=== PATIENT | male | born 1950 | race Caucasian/White ===

== ENCOUNTER 2022-08-02 13:03 | Inpatient (IN) ==
[2022-08-02 13:20] LABS: ABG ALLEN TEST POS; ABG BASE EXCESS 6.1 mmol/L (-2.0-2.0); ABG HCO3 29.6 mmol/L (22-26)
--- NOTE | 2022-08-02 13:27 | DR.SOBA ---
HPI Time Seen Time Seen by Provider: 08/02/22 13:26 Complaints Chief Complaint Doctors Comments: HYPOXIA,SOB, AFTER GETTING UP AND GOING TO REST ROOM. HE HAS A TRACH AND PEG. RECENTLY .2 DAYS AGO DISCHARGED FROM [facility]. EMS WENT OUT TO GET HIM BUT PATIENT REFUSED,HIS HOME HEALTH TEAM PRESENT TO PATIENT'S HOME AND CONVINCED HIM TO GO TO ER. PATIENT WAS 92 % ON 3 LITERS WHEN HE ARRIVED, HE INCREASED TO 95% ON 3.5 LITERS. PMH PMH Past Medical History: COPD and CVA Past Surgical History: Yes Surgical History: Ortho Surgery Social History Do you use any recreational Drugs:: Yes (Marijuana) ROS Review of Systems Constitutional: Other (HYPOXIA,SOB SINCE THIS AM) Eyes: No Symptoms Reported ENTM: No Symptoms Reported Respiratoy: Short of Breath Cardiovascular: No Symptoms Reported Gastrointestinal/Abdominal: No Symptoms Reported Genitourinary: No Symptoms Reported Neurological: No Symptoms Reported Musculoskeletal: No Symptoms Reported Integumentary: No Symptoms Reported Hematologic/Lymphatic: No Symptoms Reported Endocrine: No Symptoms Reported Psychiatric: No Symptoms Reported PE Vital Signs Vitals: Temperature 98.1 F Pulse Rate 104 Respiratory Rate 15 Blood Pressure [Left Arm] 124/77 Blood Pressure 95/57 O2 Sat by Pulse Oximetry 95 General Limitations: No Limitations and Physical Limitation (DUE TO COPD GETS SOB WHEN HE AMBULATES) General Appearance: In Distress (MILD DISTRESS) Head Head Exam: Normal Inspection and Atraumatic Eyes Eye exam: Normal Appearance and PERRL ENT ENT Exam: Other (HAS TRACH) Neck Neck Exam: Other (HAS TRACH) Chest Chest Inspection: Normal Inspection and Symmetric Chest Wall Rise Respiratory Respiratory Exam: Prolonged Expiratory Phase Respiratory Exam: Bilateral: Rhonchi Abdominal Exam Abdominal Exam: Normal Inspection and Other (HAS PEG TUBE) Extremities Extremities Exam: Normal Inspection and Full ROM Back Back Exam: Normal Inspection and Full ROM Neurologic Neurological Exam: Oriented X3 and CN II-XII Intact Psychiatric Psychiatric Exam: Depressed MDM Differential Diagnosis Differential Diagnosis: COPD, Pneumonia, Respiratory Insufficiency and URI COURSE Treatment Treatment: PATIENT REMAINED RELATIVELY STABLE DURING ER EVALUATION. HAD AN EPISODE OF HYPOTENSION IN ER AND WAS GIVEN ONE LITER BOLUS OF NACL AND BLOOD PRESSURE INCREASED TO 103/60. PATIENT HAD CBC THAT SHOWED WBC OF 22.3 AND UA THAT SHOWED +2LE AND 10-20 WBC,S AND 1 + BACTERIA. THE PATIENT HAD A CHEST XRAY THAT DID NOT SHOW AN OBVIOUS INFILTRATE BUT DID HAVE FINDINGS SUGGESTIVE OF COPE AND EMPHYSEMA. HAD SOME LEFT HILAR ADENOPATHY VS MASS. THE PATIENT HAD BC X2 DONE AND LACTIC ACID LEVEL THAT WAS NORMAL. PATIENT WAS GIVEN 1 GRAM OF ROCEPHINE 1V AND CONTACT WAS MADE WITH DR BASS AT 1658 AND HE ACCEPTED THE PATIENT TO ADMISSION FOR HYPOXIA,COPD EXACERBATION,LEUCOCYTOSIS,UTI. PATIENT WAS TOLD OF THE INTENT TO ADMIT AND WAS AGREABLE TO THE ADMISSION. ROR Labs Reviewed Laboratory Results Reviewed?: Yes Result Diagrams: 08/02/22 14:25 08/02/22 14: Laboratory: WBC 22.3 X10^3/uL (3.6-10.0) H 08/02/22 14: RBC 4.31 X10^6/uL (4.7-6.0) L 08/02/22 14: Hgb 11.3 g/dL (13.5-18.0) L 08/02/22 14: Hct 34.5 % (42.0-54.0) L 08/02/22: MCV 80.1 fL (80.0-100.0) 08/02/22 14: MCH 26.2 pg (27.0-34.0) L 08/02/22 14: MCHC 32.6 g/dL (33.0-35.0) L 08/02/22 14: RDW 23.1 % (11.6-16.5) H 08/02/22 14: Plt Count 330 X10^3/uL (150.0-450.0) 08/02/22 14: Plt Count Comment Adequate (ADEQUATE) 08/02/22: MPV 8.2 fL (7.4-11.0) 08/02/22 14: Neut % (Auto) 97.1 % (42.0-75.0) H 08/02/22 14: Lymph % (Auto) 1.3 % (21.0-51.0) L 08/02/22 14: [place] % (Auto) 1.4 % (0.0-13.0) 08/02/22 14: Eos % (Auto) 0.0 % (0.9-2.9) L 08/02/22 14:25 Baso % (Auto) 0.2 % (0.2-1.0) 08/02/22 14:25 Neut # (Auto) 21.6 x10^3/uL (2.2-4.8) H 08/02/22 14:25 Lymph # (Auto) 0.3 X10^3/uL (1.3-2.9) L 08/02/22 14:25 [place] # (Auto) 0.3 x10^3/uL (0.3-0.8) 08/02/22 14:25 Eos # (Auto) 0.0 x10^3/uL (0.0-0.2) 08/02/22 14:25 Baso # (Auto) 0.0 X10^3/uL (0.0-0.1) 08/02/22 14: Absolute Nucleated RBC 0.0 /100WBC 08/02/22 14:25 Total Counted 100 08/02/22 14:25 Neutrophils % (Manual) 96 % (39-76) H 08/02/22 14:25 Lymphocytes % (Manual) 2 % (13-43) L 08/02/22 14:25 Monocytes % (Manual) 2 % (4-9) L 08/02/22 14:25 Plt Morphology Comment Normal (NORMAL) 08/02/22 14: RBC Morphology Abnormal (NORMAL) 08/02/22 14:25 Hypochromasia Slight A 08/02/22 14:25 Anisocytosis 2+ A 08/02/22 14:25 Sample Site Rr 08/02/22 13:10 ABG pH 7.500 (7.35-7.45) H 08/02/22 13:10 ABG pCO2 38.0 mmHg (35.0-45.0) 08/02/22 13:10 ABG pO2 54.0 mmHg (80.0-100.0) L 08/02/22 13:10 ABG HCO3 29.6 mmol/L (22-26) H 08/02/22 13:10 ABG O2 Saturation 91.0 % (90-100) 08/02/22 13:10 ABG Base Excess 6.1 mmol/L (-2.0-2.0) H 08/02/22 13:10 Asaf Test Pos 08/02/22 13:10 A-a Gradient 127.0 mmHg 08/02/22 13:10 FiO2 32.0 08/02/22 13:10 Blood Gas Comments Pt jay well cdn 08/02/22 13:10 Sodium 140 mmol/L (136-145) 08/02/22 14:25 Corrected Sodium 140 mmol/L (136-145) 08/02/22 14:25 Potassium 4.5 mmol/L (3.5-5.1) 08/02/22 14:25 Chloride 101 mmol/L (98-107) 08/02/22 14:25 Carbon Dioxide 32.5 mmol/L (21-32) H 08/02/22 14:25 BUN 32 mg/dL (7-18) H 08/02/22 14:25 Creatinine 0.89 mg/dL (0.70-1.30) 08/02/22 14:25 Est GFR (MDRD) Af Amer > 60 (>60) 08/02/22 14:25 Est GFR (MDRD) Non-Af > 60 (>60) 08/02/22 14:25 Glucose 115 mg/dL (65-99) H 08/02/22 14:25 Lactic Acid 0.7 mmol/L (0.4-2.0) 08/02/22 16:08 Calcium 9.6 mg/dL (8.5-10.1) 08/02/22 14:25 Corrected Calcium 10.3 mg/dL (8.5-10.1) H 08/02/22 14:25 Total Bilirubin 0.70 mg/dL (0.2-1.0) 08/02/22 14:25 AST 39 Units/L (15-37) H 08/02/22 14:25 ALT 41 Units/L (12-78) 08/02/22 14:25 Alkaline Phosphatase 120 Units/L (46-116) H 08/02/22 14:25 Creatine Kinase 34 Units/L (39-308) L 08/02/22 14:25 Troponin I High Sens 7.6 ng/L (4.0-60.0) 08/02/22 14:25 Total Protein 7.0 g/dL (6.4-8.2) 08/02/22 14:25 Albumin 3.1 g/dL (3.4-5.0) L 08/02/22 14:25 Globulin 3.9 g/dL (2.5-4.5) 08/02/22 14:25 Albumin/Globulin Ratio 0.8 Ratio (1.1-2.1) L 08/02/22 14:25 Specimen Type Catherized urine 08/02/22 13:47 Urine Color Yellow (YELLOW) 08/02/22 13:47 Urine Appearance Slightly hazy (CLEAR) 08/02/22 13:47 Urine pH 5.0 (5.0 - 8.0) 08/02/22 13:47 Ur Specific [place] 1.030 (1.000-1.030) 08/02/22 13:47 Urine Protein 3+ (NEGATIVE) 08/02/22 13:47 Urine Glucose (UA) Negative (NEGATIVE) 08/02/22 13:47 Urine Ketones 1+ (NEGATIVE) 08/02/22 13:47 Urine Blood 1+ (NEGATIVE) 08/02/22 13:47 Urine Nitrite Negative (NEGATIVE) 08/02/22 13:47 Urine Bilirubin Negative (NEGATIVE) 08/02/22 13:47 Urine Urobilinogen Normal (NORMAL) 08/02/22 13:47 Ur Leukocyte Esterase 2+ (NEGATIVE) 08/02/22 13:47 Urine RBC 0-2 /HPF (0-3) 08/02/22 13:47 Urine WBC 10-20 /HPF (0-5) A 08/02/22 13:47 Ur Squamous Epith Cells Negative /HPF (NEGATIVE) 08/02/22 13:47 Urine Bacteria Trace /HPF (NEGATIVE) 08/02/22 13:47 Urine Mucus Many /HPF (NEGATIVE) 08/02/22 13:47 Ur Culture Indicated? Yes/culture set up 08/02/22 13:47 Opioid Opioid Risk Tool Age (Fabio box if 16-45): No History of Preadolescent Sexual Abuse: No Total: 0 Total Score Risk Category: Low Risk Copyright: Armando KIM predicting aberrant behaviors Discharge Plan Diagnosis Discharge Problem: Dyspnea, COPD (chronic obstructive pulmonary disease) with chronic bronchitis, Hypoxia, UTI (urinary tract infection), bacterial Discharge Plan Patient Disposition: 09 ADMITTED INPATIENT Condition: Stable Orders to Discharge Patient Discharge Orders: Transfer (Routine); Ordered 08/02/22 Ordered By: Jose Robert
[2022-08-02 13:30] VITALS: BMI 24.2
--- NOTE | 2022-08-02 13:35 | EKG ---
Test Reason : SOB Blood Pressure : */* mmHG Vent. Rate : 106 BPM Atrial Rate : 106 BPM P-R Int : 156 ms QRS Dur : 72 ms QT Int : 302 ms P-R-T Axes : 68 -27 -20 degrees QTc Int : 401 ms Sinus tachycardia Low voltage QRS Inferior infarct , age undetermined Cannot rule out Anterior infarct , age undetermined Abnormal ECG No previous ECGs available Confirmed by Rashid Sood ([id number]) on 08/02/2022 9:10:07 PM Referred By: Confirmed By: Rashid Sood
[2022-08-02 14:22] LABS: BILIRUBIN,URINE NEGATIVE (NEGATIVE); BLOOD/HEMOGLOBIN,URINE 1+ (NEGATIVE); GLUCOSE, URINE NEGATIVE (NEGATIVE); KETONES,URINE 1+ (NEGATIVE); LEUKOCYTE ESTERASE ,URINE 2+ (NEGATIVE); NITRITES,URINE NEGATIVE (NEGATIVE); PROTEIN,URINE 3+ (NEGATIVE); UROBILINOGEN,URINE NORMAL (NORMAL)
[2022-08-02 14:35] LABS: APPEARANCE,URINE SLIGHTLY HAZY (CLEAR); COLOR,URINE YELLOW (YELLOW)
[2022-08-02 14:36] LABS: BASOPHILS % (AUTO) 0.2 % (0.2-1.0); HEMATOCRIT 34.5 % (42.0-54.0); HEMOGLOBIN 11.3 g/dL (13.5-18.0); LYMPHOCYTES # (AUTO) 0.3 X10^3/uL (1.3-2.9); LYMPHOCYTES % (AUTO) 1.3 % (21.0-51.0); MEAN CORPUSCULAR HEMOGLOBIN 26.2 pg (27.0-34.0); MEAN CORPUSCULAR HGB CONC 32.6 g/dL (33.0-35.0); MEAN CORPUSCULAR VOLUME 80.1 fL (80.0-100.0); MEAN PLATELET VOLUME 8.2 fL (7.4-11.0); MONOCYTES # (AUTO) 0.3 x10^3/uL (0.3-0.8); MONOCYTES % (AUTO) 1.4 % (0.0-13.0); NEUTROPHILS # (AUTO) 21.6 x10^3/uL (2.2-4.8); NEUTROPHILS % (AUTO) 97.1 % (42.0-75.0); RED BLOOD COUNT 4.31 X10^6/uL (4.7-6.0); RED CELL DISTRIBUTION WIDTH 23.1 % (11.6-16.5); WHITE BLOOD COUNT 22.3 X10^3/uL (3.6-10.0)
[2022-08-02 14:36] LABS: BACTERIA,URINE TRACE /HPF (NEGATIVE); RBC,URINE 0-2 /HPF (0-3); SQUAMOUS EPITHELIAL CELL,UR NEGATIVE /HPF (NEGATIVE)
[2022-08-02 14:50] LABS: ALANINE AMINOTRANSFERASE 41 Units/L (12-78); ALBUMIN 3.1 g/dL (3.4-5.0); ALKALINE PHOSPHATASE 120 Units/L (46-116); ASPARTATE AMINO TRANSFERASE 39 Units/L (15-37); BLOOD UREA NITROGEN 32 mg/dL (7-18); CALCIUM 9.6 mg/dL (8.5-10.1); CARBON DIOXIDE 32.5 mmol/L (21-32); CHLORIDE 101 mmol/L (98-107); COR CA(FOR HYPOALB) 10.3 mg/dL (8.5-10.1); COR NA(FOR HYPERGLY) 140 mmol/L (136-145); CREATINE KINASE 34 Units/L (39-308); CREATININE 0.89 mg/dL (0.70-1.30); SODIUM 140 mmol/L (136-145); eGFR NON BLACK RACES > 60 (>60)
[2022-08-02 15:02] LABS: PLATELET MORPHOLOGY COMMENT NORMAL (NORMAL)
[2022-08-02 15:03] LABS: ANISOCYTOSIS 2+; HYPOCHROMASIA SLIGHT
[2022-08-02] MEDS ORDERED: NS 1,000 ML IV 1,000 ML IV ONE (15:48)
[2022-08-02] MEDS ORDERED: NS 1,000 ML IV 1,000 ML ONE (15:53)
[2022-08-02] MEDS ORDERED: ROCEPHIN VIAL 1 GRAM IV ONE (16:00)
[2022-08-02] MEDS ORDERED: ROCEPHIN VIAL 1 GRAM ONE (16:01)
[2022-08-02] MEDS: NS 1,000 ML IV 1,000 ML IV SCH (18:14)
--- NOTE | 2022-08-02 18:30 | RAD ---
HISTORYShortness of breath and hypoxia relevant Clinical InformationSTUDYCHEST, 1 VIEWCOMPARISONFrontal chest February 02, 2022FINDINGSTracheostomy tube is noted with tip in good position. The heart silhouette is mildly enlarged. Interstitial coarsening is noted bilaterally. Remote lateral right rib deformities. Airspace infiltrates in the left lower lobe. Blunting of left costophrenic angle suggesting possible small pleural effusion.IMPRESSIONSevere interstitial lung disease with left lower lobe airspace opacities worrisome for pneumonia. Possible small left pleural effusionElectronically signed by: Tarik Giron (Aug 02, 2022 18:28:55)
[2022-08-02] MEDS ORDERED: PULMICORT NEB TX 0.5 MG NEB ONE (19:49)
[2022-08-02] MEDS ORDERED: DUONEB 0.5 MG/3 MG (3 mL) NEB ONE (19:49)
[2022-08-02] MEDS ORDERED: DUONEB 0.5 MG/3 MG (3 mL) NEB SCH (21:00)
[2022-08-02] MEDS: PULMICORT NEB TX 0.5 MG NEB SCH (21:18)
[2022-08-02] MEDS: DUONEB 0.5 MG/3 MG (3 mL) NEB SCH (21:18)
[2022-08-02] MEDS ORDERED: SIMETHICONE 125 MG PO SCH (22:00)
[2022-08-02] MEDS ORDERED: [UNRECOGNIZED DRUG - OTHER] PO SCH (22:00)
[2022-08-02] MEDS: VITAMIN C PO SCH (22:30)
[2022-08-02] MEDS: LIPITOR TAB 40 MG PO SCH (22:30)
[2022-08-02] MEDS: PROAMATINE PO SCH (22:45)
[2022-08-03] MEDS: DUONEB 0.5 MG/3 MG (3 mL) NEB SCH ×6 (00:22→20:19)
[2022-08-03] MEDS: BUSPAR PO SCH ×4 (01:30→23:40)
[2022-08-03] MEDS: NS 1,000 ML IV 1,000 ML IV SCH ×3 (01:31→20:05)
[2022-08-03] MEDS: SEROquel TAB 25 mg PO SCH ×5 (01:31→23:42)
[2022-08-03] MEDS: PROAMATINE PO SCH ×3 (06:30→20:10)
[2022-08-03 06:45] LABS: BASOPHILS # (AUTO) 0.1 X10^3/uL (0.0-0.1); BASOPHILS % (AUTO) 0.6 % (0.2-1.0); HEMOGLOBIN 10.3 g/dL (13.5-18.0); LYMPHOCYTES # (AUTO) 0.6 X10^3/uL (1.3-2.9); LYMPHOCYTES % (AUTO) 3.3 % (21.0-51.0); MEAN CORPUSCULAR HEMOGLOBIN 26.6 pg (27.0-34.0); MEAN CORPUSCULAR HGB CONC 32.2 g/dL (33.0-35.0); MEAN CORPUSCULAR VOLUME 82.6 fL (80.0-100.0); MEAN PLATELET VOLUME 9.2 fL (7.4-11.0); MONOCYTES # (AUTO) 0.7 x10^3/uL (0.3-0.8); MONOCYTES % (AUTO) 3.7 % (0.0-13.0); NEUTROPHILS # (AUTO) 17.7 x10^3/uL (2.2-4.8); NEUTROPHILS % (AUTO) 92.4 % (42.0-75.0); RED BLOOD COUNT 3.87 X10^6/uL (4.7-6.0); RED CELL DISTRIBUTION WIDTH 23.4 % (11.6-16.5); WHITE BLOOD COUNT 19.1 X10^3/uL (3.6-10.0)
[2022-08-03 06:57] LABS: ALANINE AMINOTRANSFERASE 28 Units/L (12-78); ALBUMIN 2.5 g/dL (3.4-5.0); ALKALINE PHOSPHATASE 94 Units/L (46-116); ASPARTATE AMINO TRANSFERASE 26 Units/L (15-37); BLOOD UREA NITROGEN 26 mg/dL (7-18); CALCIUM 8.8 mg/dL (8.5-10.1); CARBON DIOXIDE 29.4 mmol/L (21-32); CHLORIDE 104 mmol/L (98-107); CREATININE 0.73 mg/dL (0.70-1.30); SODIUM 141 mmol/L (136-145); TOTAL PROTEIN 6.1 g/dL (6.4-8.2); eGFR NON BLACK RACES > 60 (>60)
[2022-08-03 07:20] LABS: ANISOCYTOSIS 2+; HYPOCHROMASIA SLIGHT; PLATELET MORPHOLOGY COMMENT NORMAL (NORMAL)
[2022-08-03] MEDS: PULMICORT NEB TX 0.5 MG NEB SCH ×2 (08:37→20:19)
[2022-08-03] MEDS ORDERED: MYLICON TAB 80 MG CHEW PO ONE ×2 (08:57→13:33)
[2022-08-03] MEDS: MYLICON TAB 80 MG CHEW PO SCH ×2 (08:59→13:58)
[2022-08-03] MEDS: ASPIRIN 81 MG CHEWTAB PO SCH (09:00)
[2022-08-03] MEDS: VITAMIN C PO SCH ×2 (09:00→20:10)
[2022-08-03] MEDS ORDERED: FORTAZ or TAZICEF VIAL INJ 1 G in NS 100 ML IV + SPIKE MINIBAG* 100 ML IV SCH (09:00)
[2022-08-03] MEDS: FORTAZ or TAZICEF VIAL INJ 1 G in NS 100 ML IV 100 ML IV SCH ×4 (09:00→20:05)
[2022-08-03] MEDS ORDERED: ROCEPHIN VIAL 1 GRAM 1 G in NS 100 ML IV 100 ML IV SCH (09:00)
[2022-08-03] MEDS: SOLU-Medrol 40 MG VIAL IVP SCH ×4 (10:03→20:16)
[2022-08-03] MEDS: LEVAQUIN PREMIX IV 500 MG 500 MG/100 ML BAG IV SCH (10:26)
[2022-08-03] MEDS ORDERED: IMODIUM CAP 2 MG PO PRN (12:10)
[2022-08-03] MEDS ORDERED: MYLICON TAB 80 MG CHEW PO PRN (18:54)
[2022-08-03] MEDS ORDERED: STERILE WATER IRRIGATION IR ONE (20:00)
[2022-08-03] MEDS: LIPITOR TAB 40 MG PO SCH (20:10)
[2022-08-03] MEDS ORDERED: MYLICON TAB 80 MG CHEW PO SCH (22:00)
[2022-08-04] MEDS: DUONEB 0.5 MG/3 MG (3 mL) NEB SCH ×6 (01:00→21:05)
[2022-08-04] MEDS: NS 1,000 ML IV 1,000 ML IV SCH ×6 (04:17→23:38)
[2022-08-04] MEDS: SOLU-Medrol 40 MG VIAL IVP SCH ×3 (05:40→21:01)
[2022-08-04] MEDS: FORTAZ or TAZICEF VIAL INJ 1 G in NS 100 ML IV 100 ML IV SCH ×3 (05:40→21:02)
[2022-08-04] MEDS: PROAMATINE PO SCH ×3 (05:40→21:00)
[2022-08-04] MEDS: BUSPAR PO SCH ×3 (06:04→21:00)
[2022-08-04] MEDS: SEROquel TAB 25 mg PO SCH ×3 (06:05→21:00)
[2022-08-04 06:19] LABS: BASOPHILS % (AUTO) 0.1 % (0.2-1.0); HEMATOCRIT 32.2 % (42.0-54.0); HEMOGLOBIN 10.4 g/dL (13.5-18.0); LYMPHOCYTES # (AUTO) 0.3 X10^3/uL (1.3-2.9); LYMPHOCYTES % (AUTO) 3.3 % (21.0-51.0); MEAN CORPUSCULAR HEMOGLOBIN 26.1 pg (27.0-34.0); MEAN CORPUSCULAR HGB CONC 32.3 g/dL (33.0-35.0); MEAN PLATELET VOLUME 8.9 fL (7.4-11.0); MONOCYTES # (AUTO) 0.1 x10^3/uL (0.3-0.8); MONOCYTES % (AUTO) 1.2 % (0.0-13.0); NEUTROPHILS # (AUTO) 9.8 x10^3/uL (2.2-4.8); NEUTROPHILS % (AUTO) 95.4 % (42.0-75.0); RED BLOOD COUNT 3.98 X10^6/uL (4.7-6.0); RED CELL DISTRIBUTION WIDTH 23.4 % (11.6-16.5); WHITE BLOOD COUNT 10.3 X10^3/uL (3.6-10.0)
[2022-08-04 06:31] LABS: ALANINE AMINOTRANSFERASE 27 Units/L (12-78); ALBUMIN 2.5 g/dL (3.4-5.0); ALKALINE PHOSPHATASE 97 Units/L (46-116); ASPARTATE AMINO TRANSFERASE 25 Units/L (15-37); BLOOD UREA NITROGEN 31 mg/dL (7-18); CALCIUM 8.8 mg/dL (8.5-10.1); CARBON DIOXIDE 26.9 mmol/L (21-32); CHLORIDE 105 mmol/L (98-107); COR NA(FOR HYPERGLY) 143 mmol/L (136-145); CREATININE 0.69 mg/dL (0.70-1.30); SODIUM 142 mmol/L (136-145); TOTAL PROTEIN 6.2 g/dL (6.4-8.2); eGFR NON BLACK RACES > 60 (>60)
[2022-08-04 06:50] LABS: PLATELET MORPHOLOGY COMMENT NORMAL (NORMAL)
[2022-08-04 06:51] LABS: ANISOCYTOSIS 2+; HYPOCHROMASIA SLIGHT
[2022-08-04] MEDS: PULMICORT NEB TX 0.5 MG NEB SCH ×2 (08:14→21:05)
[2022-08-04 08:59] LABS: CRYPTOSPORIDIUM PARVUM ANTIGEN NEGATIVE (NEGATIVE); GIARDIA LAMBLIA ANTIGEN NEGATIVE (NEGATIVE)
[2022-08-04] MEDS: ASPIRIN 81 MG CHEWTAB PO SCH (09:04)
[2022-08-04] MEDS: VITAMIN C PO SCH ×2 (09:04→20:53)
[2022-08-04] MEDS: LEVAQUIN PREMIX IV 500 MG 500 MG/100 ML BAG IV SCH (09:04)
[2022-08-04] MEDS: ROXICODONE TAB 5 MG PO PRN ×2 (09:34→20:59)
--- NOTE | 2022-08-04 09:38 | RAD ---
HISTORYSOBSTUDYAP chestCOMPARISONApril 2022FINDINGSIncreasing density at the left base consistent with combination of airspace lower lobe involvement and developing left pleural effusion.IMPRESSIONPersistent pleural-parenchymal changes at the left base most compatible with pneumonia and parapneumonic effusion. Stable position of tracheostomy tube.Electronically signed by: ISAAC PICHARDO (Aug 04, 2022 09:37:03)
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
[2022-08-04] MEDS: LIPITOR TAB 40 MG PO SCH (20:54)
[2022-08-05] MEDS: DUONEB 0.5 MG/3 MG (3 mL) NEB SCH ×6 (01:10→21:00)
[2022-08-05] MEDS: BUSPAR PO SCH ×3 (06:11→20:59)
[2022-08-05] MEDS: SEROquel TAB 25 mg PO SCH ×3 (06:11→21:43)
[2022-08-05] MEDS: PROAMATINE PO SCH ×3 (06:11→22:10)
[2022-08-05] MEDS: FORTAZ or TAZICEF VIAL INJ 1 G in NS 100 ML IV 100 ML IV SCH ×3 (06:12→20:59)
[2022-08-05] MEDS: SOLU-Medrol 40 MG VIAL IVP SCH ×3 (06:12→20:59)
[2022-08-05 06:16] LABS: BASOPHILS % (AUTO) 0.3 % (0.2-1.0); HEMATOCRIT 29.7 % (42.0-54.0); HEMOGLOBIN 9.9 g/dL (13.5-18.0); LYMPHOCYTES # (AUTO) 0.3 X10^3/uL (1.3-2.9); LYMPHOCYTES % (AUTO) 4.5 % (21.0-51.0); MEAN CORPUSCULAR HEMOGLOBIN 26.9 pg (27.0-34.0); MEAN CORPUSCULAR HGB CONC 33.3 g/dL (33.0-35.0); MEAN CORPUSCULAR VOLUME 80.6 fL (80.0-100.0); MEAN PLATELET VOLUME 8.7 fL (7.4-11.0); MONOCYTES # (AUTO) 0.1 x10^3/uL (0.3-0.8); MONOCYTES % (AUTO) 2.3 % (0.0-13.0); NEUTROPHILS # (AUTO) 5.8 x10^3/uL (2.2-4.8); NEUTROPHILS % (AUTO) 92.9 % (42.0-75.0); RED BLOOD COUNT 3.69 X10^6/uL (4.7-6.0); RED CELL DISTRIBUTION WIDTH 23.3 % (11.6-16.5); WHITE BLOOD COUNT 6.3 X10^3/uL (3.6-10.0)
[2022-08-05 06:37] LABS: ALANINE AMINOTRANSFERASE 22 Units/L (12-78); ALBUMIN 2.3 g/dL (3.4-5.0); ALKALINE PHOSPHATASE 89 Units/L (46-116); ASPARTATE AMINO TRANSFERASE 20 Units/L (15-37); BLOOD UREA NITROGEN 28 mg/dL (7-18); CALCIUM 8.7 mg/dL (8.5-10.1); CARBON DIOXIDE 26.3 mmol/L (21-32); CHLORIDE 109 mmol/L (98-107); COR CA(FOR HYPOALB) 10.1 mg/dL (8.5-10.1); COR NA(FOR HYPERGLY) 143 mmol/L (136-145); CREATININE 0.56 mg/dL (0.70-1.30); SODIUM 142 mmol/L (136-145); TOTAL PROTEIN 5.6 g/dL (6.4-8.2); eGFR NON BLACK RACES > 60 (>60)
[2022-08-05 06:56] LABS: ANISOCYTOSIS 2+; HYPOCHROMASIA SLIGHT; PLATELET MORPHOLOGY COMMENT NORMAL (NORMAL)
[2022-08-05] MEDS ORDERED: K-RIDER 10 MEQ/NS 100 ML 10 MEQ/100 ML BAG IV PRN (07:01)
[2022-08-05] MEDS ORDERED: POTASSIUM CHL 40 MEQ/NS 0.45% 500 ML IV PRN (07:01)
[2022-08-05] MEDS ORDERED: KLOR-CON PO PRN (07:01)
[2022-08-05] MEDS ORDERED: MAGNESIUM SULFATE 1 GRAM/100 mL PREMIX 1 G/100 ML BAG IV PRN (07:01)
[2022-08-05] MEDS ORDERED: POTASSIUM CHL 60 MEQ/NS 0.45% 500 ML IV PRN (07:01)
[2022-08-05] MEDS ORDERED: POTASSIUM CHLORIDE LIQ 20 MEQ UDC PO PRN (07:01)
[2022-08-05] MEDS ORDERED: MICRO K EXTEN CAP 10 MEQ PO PRN (07:01)
[2022-08-05] MEDS ORDERED: K-DUR TAB 20 MEQ PO PRN (07:01)
[2022-08-05] MEDS: PULMICORT NEB TX 0.5 MG NEB SCH ×2 (08:23→21:00)
--- NOTE | 2022-08-05 08:41 | RAD ---
HISTORYSOB COPD lung CASTUDYAP chestCOMPARISONApril 2022FINDINGSHeart size unchanged. Persistent pleural-parenchymal opacity at the left base consistent with pneumonia and pleural fluid. There is noted an increasing peripheral infiltrate in the right midlung when compared to prior studies.IMPRESSIONStable and similar findings in the left lower lobe and pleural space. Increasing peripheral infiltrate in the right midlung adjacent to the pleural surface. Continued follow-up indicated.Electronically signed by: ISAAC PICHARDO (Aug 05, 2022 08:40:43)
[2022-08-05] MEDS: VITAMIN C PO SCH ×2 (09:45→20:57)
[2022-08-05] MEDS: ASPIRIN 81 MG CHEWTAB PO SCH (09:45)
[2022-08-05] MEDS: LEVAQUIN PREMIX IV 500 MG 500 MG/100 ML BAG IV SCH (09:46)
[2022-08-05] MEDS: LOVENOX INJ 40 MG SYR SC SCH (09:46)
[2022-08-05] MEDS: NS 1,000 ML IV 1,000 ML IV SCH ×5 (12:14→21:43)
[2022-08-05] MEDS: ROXICODONE TAB 5 MG PO PRN (20:57)
[2022-08-05] MEDS: LIPITOR TAB 40 MG PO SCH (20:57)
[2022-08-06] MEDS: DUONEB 0.5 MG/3 MG (3 mL) NEB SCH ×3 (01:28→08:00)
[2022-08-06] MEDS: NS 1,000 ML IV 1,000 ML IV SCH (03:13)
[2022-08-06] MEDS: BUSPAR PO SCH (05:16)
[2022-08-06] MEDS: FORTAZ or TAZICEF VIAL INJ 1 G in NS 100 ML IV 100 ML IV SCH (05:16)
[2022-08-06] MEDS: SOLU-Medrol 40 MG VIAL IVP SCH (05:17)
[2022-08-06] MEDS: PROAMATINE PO SCH (05:17)
[2022-08-06 05:28] LABS: BASOPHILS % (AUTO) 0.1 % (0.2-1.0); HEMATOCRIT 30.8 % (42.0-54.0); HEMOGLOBIN 10.1 g/dL (13.5-18.0); LYMPHOCYTES # (AUTO) 0.2 X10^3/uL (1.3-2.9); LYMPHOCYTES % (AUTO) 4.3 % (21.0-51.0); MEAN CORPUSCULAR HEMOGLOBIN 26.6 pg (27.0-34.0); MEAN CORPUSCULAR HGB CONC 32.8 g/dL (33.0-35.0); MEAN CORPUSCULAR VOLUME 81.1 fL (80.0-100.0); MEAN PLATELET VOLUME 8.7 fL (7.4-11.0); MONOCYTES # (AUTO) 0.3 x10^3/uL (0.3-0.8); MONOCYTES % (AUTO) 5.8 % (0.0-13.0); NEUTROPHILS % (AUTO) 89.8 % (42.0-75.0); RED BLOOD COUNT 3.79 X10^6/uL (4.7-6.0); RED CELL DISTRIBUTION WIDTH 23.4 % (11.6-16.5); WHITE BLOOD COUNT 4.4 X10^3/uL (3.6-10.0)
[2022-08-06 05:42] LABS: ALANINE AMINOTRANSFERASE 33 Units/L (12-78); ALBUMIN 2.4 g/dL (3.4-5.0); ALKALINE PHOSPHATASE 92 Units/L (46-116); ASPARTATE AMINO TRANSFERASE 29 Units/L (15-37); BLOOD UREA NITROGEN 27 mg/dL (7-18); CALCIUM 8.3 mg/dL (8.5-10.1); CARBON DIOXIDE 29.6 mmol/L (21-32); CHLORIDE 110 mmol/L (98-107); COR CA(FOR HYPOALB) 9.6 mg/dL (8.5-10.1); COR NA(FOR HYPERGLY) 144 mmol/L (136-145); CREATININE 0.58 mg/dL (0.70-1.30); SODIUM 144 mmol/L (136-145); TOTAL PROTEIN 5.5 g/dL (6.4-8.2); eGFR NON BLACK RACES > 60 (>60)
[2022-08-06 05:50] LABS: ANISOCYTOSIS 2+; HYPOCHROMASIA SLIGHT; OVALOCYTES SLIGHT; PLATELET MORPHOLOGY COMMENT NORMAL (NORMAL)
[2022-08-06] MEDS: SEROquel TAB 25 mg PO SCH (06:05)
--- NOTE | 2022-08-06 07:44 | RAD ---
HISTORYShortness of breathSTUDYChest AP [id number]/2023FINDINGSTher e is a tracheostomy tube in good position. Heart size is normal. Sima are normal. Lungs are generally hyperinflated. Right basilar lung infiltrate is unchanged as is pleural parenchymal opacity along the right lateral chest wall. Upper lung del angel are clear. Increased density remains in the left lower lobe obscuring left hemidiaphragm. Left pleural effusion is present. Abnormal parenchymal density could be due to the pleural effusion, pneumonia, atelectasis, or combination. Finding is unchanged when compared with the prior examination. Bony thorax is unremarkable.IMPRESSIONNo significant change from the prior examinationElectronically signed by: MARY MARTÍNEZ (Aug 06, 2022 07:38:14)
[2022-08-06] MEDS ORDERED: PATIENT'S HOME MEDICATION PO SCH (08:00)
[2022-08-06] MEDS: PULMICORT NEB TX 0.5 MG NEB SCH (08:02)
[2022-08-06] MEDS: ASPIRIN 81 MG CHEWTAB PO SCH (08:23)
[2022-08-06] MEDS: LEVAQUIN PREMIX IV 500 MG 500 MG/100 ML BAG IV SCH (08:23)
[2022-08-06] MEDS: LOVENOX INJ 40 MG SYR SC SCH (08:23)
[2022-08-06] MEDS: VITAMIN C PO SCH (08:23)
[2022-08-06 08:53] VITALS: BP 150/85
== END 2022-08-06 11:19 | disposition home health service (06) | DRG 194 ==
LOC: ER 13:03 → MED/SURG 13:03
PROVIDERS: ADMIT Obstetrics & Gynecology Obstetrics; ATTEND Obstetrics & Gynecology Obstetrics
DX: Z93.1 Gastrostomy status; E78.2 Mixed hyperlipidemia; Z20.822 Contact with and (suspected) exposure to COVID-19; G25.81 Restless legs syndrome; R06.02 Shortness of breath; C34.90 Malignant neoplasm of unspecified part of unspecified bronchus or lung; J44.9 Chronic obstructive pulmonary disease, unspecified; R53.1 Weakness; Z93.0 Tracheostomy status; R09.02 Hypoxemia; N39.0 Urinary tract infection, site not specified; Z86.73 Personal history of transient ischemic attack (TIA), and cerebral infarction without residual deficits; D72.829 Elevated white blood cell count, unspecified; J18.8 Other pneumonia, unspecified organism; I48.91 Unspecified atrial fibrillation